=== PATIENT | male | born 1990 | race African-American/Black ===

== ENCOUNTER 2018-04-29 18:56 | Emergency (ER) | payer SELFPAY ==
[~2018-04-29] VITALS: Ht 182.9 cm; Wt 100.0 kg
[2018-04-30 00:31] VITALS: BP 108/78
== END 2018-04-30 03:20 | disposition left against medical advice (07) ==
LOC: ER 18:56
DX: Z53.21 Procedure and treatment not carried out due to patient leaving prior to being seen by health care provider (principal)
CPT/HCPCS: 93005